=== PATIENT | female | born 1985 | race Caucasian/White ===

== ENCOUNTER 2021-03-01 07:51 | Emergency (ER) | payer OTHER ==
[~2021-03-01 07:51] MED LIST: ALL DAY ALLERGY10 M3 PO; ARAVA20 MG PO; FLEXERIL10 MG PO; HUMIRA20 MG/0.4 SC; KEFLEX250 MG PO; MEDROL 4MG DOSEP4 MG PO; NADOLOL20 MG PO; NORCO 5-325 TA1 EACH PO; PROMETHEGA12.5 MG/SU PR; PROZAC20 MG PO; ROBAXIN500 MG PO; TAPAZOLE5 MG PO; VOLTAREN **OUT50 MG PO
== END 2021-03-01 10:07 | disposition home or self-care (01) ==
LOC: FER 07:51
DX: O99.352 Diseases of the nervous system complicating pregnancy, second trimester (principal); G43.909 Migraine, unspecified, not intractable, without status migrainosus; O10.412 Pre-existing secondary hypertension complicating pregnancy, second trimester; Z3A.27 27 weeks gestation of pregnancy; Z88.1 Allergy status to other antibiotic agents; Z87.891 Personal history of nicotine dependence
CPT/HCPCS: J0780; J7120

== ENCOUNTER 2021-03-12 06:32 | Day surgery (SDCO) | payer OTHER ==
[2021-03-12 07:11] LABS: BILIRUBIN NEGATIVE (NEGATIVE); BLOOD NEGATIVE Ery/uL (NEGATIVE); CLARITY CLEAR (CLEAR); COLOR YELLOW (YELLOW); GLUCOSE (U) NORMAL (NORMAL); LEUKOCYTES NEGATIVE Leu/uL (NEGATIVE); NITRITE NEGATIVE (NEGATIVE); PROTEIN NEGATIVE (NEGATIVE); UROBILINOGEN 0.2 mg/dL (0.2-1.0)
[2021-03-12 07:17] LABS: AMPHETAMINES NEGATIVE (NEGATIVE); BARBITURATES NEGATIVE (NEGATIVE); ECSTASY (MDMA) POSITIVE (NEGATIVE); MARIJUANA (THC) NEGATIVE (NEGATIVE); METHADONE NEGATIVE (NEGATIVE); OPIATES NEGATIVE (NEGATIVE); OXYCODONE NEGATIVE (NEGATIVE)
== END 2021-03-12 08:20 | disposition home or self-care (01) ==
LOC: FOB 06:32
PROVIDERS: ADMIT Obstetrics & Gynecology
DX: O99.891 Other specified diseases and conditions complicating pregnancy (principal); M54.9 Dorsalgia, unspecified; M19.90 Unspecified osteoarthritis, unspecified site; O16.3 Unspecified maternal hypertension, third trimester; O99.283 Endocrine, nutritional and metabolic diseases complicating pregnancy, third trimester; E05.90 Thyrotoxicosis, unspecified without thyrotoxic crisis or storm; E55.9 Vitamin D deficiency, unspecified; Z87.891 Personal history of nicotine dependence; Z88.1 Allergy status to other antibiotic agents; Z91.040 Latex allergy status; Z88.8 Allergy status to other drugs, medicaments and biological substances; Z79.1 Long term (current) use of non-steroidal anti-inflammatories (NSAID); Z3A.28 28 weeks gestation of pregnancy
CPT/HCPCS: 80305; 81003; G0378

== ENCOUNTER 2021-06-03 17:29 | Emergency (ER) | payer OTHER ==
[2021-06-03 20:22] LABS: BASOPHIL 1.3 % (0-2); EOSINOPHIL 4.9 % (0-5); HCT 43.7 % (37.0-47.0); HGB 13.7 g/dl (12.5-16.0); LYMPHOCYTE 21.5 % (15-48); MCH 25.6 pg (25.0-31.0); MCHC 31.4 g/dL (32.0-36.0); MCV 81.5 fL (78.0-100.0); MONOCYTE 11.1 % (0-12); MPV 8.8 fL (6.0-9.5); NEUTROPHIL 60.7 % (41-80); NRBC 0; PLT 489 K/uL (150-400); RBC 5.36 M/uL (4.20-5.40); RDW 13.9 % (11.5-14.0); WBC 8.8 K/uL (4.0-10.5)
[2021-06-03 20:25] LABS: BILIRUBIN NEGATIVE (NEGATIVE); BLOOD NEGATIVE Ery/uL (NEGATIVE); CLARITY CLEAR (CLEAR); COLOR YELLOW (YELLOW); GLUCOSE (U) NORMAL (NORMAL); LEUKOCYTES TRACE Leu/uL (NEGATIVE); NITRITE NEGATIVE (NEGATIVE); PROTEIN NEGATIVE (NEGATIVE); SPECIFIC GRAVITY <=1.005 (1.001-1.030); UROBILINOGEN 0.2 mg/dL (0.2-1.0)
[2021-06-03 20:31] LABS: SQUAMOUS EPITHELIAL CELLS RARE
[2021-06-03 21:12] LABS: ALBUMIN 3.8 g/dL (3.4-5.0); BILIRUBIN - TOTAL 0.2 mg/dL (0.2-1.0); BUN/CREAT RATIO (CALC) 15.5 RATIO; CREATININE 0.58 mg/dL (0.51-0.95); GLOBULIN (CALCULATION) 4.4 g/dL; MAGNESIUM 2.3 mg/dL (1.8-2.4); POTASSIUM 3.8 mmol/L (3.5-5.1); TOTAL PROTEIN 8.2 g/dL (6.4-8.2)
[2021-06-03] MEDS ORDERED: BACTRIM DS TAB1 EACH PO (22:40)
== END 2021-06-03 23:30 | disposition home or self-care (01) ==
LOC: FER 17:29
PROVIDERS: Emergency Medicine
DX: O16.5 Unspecified maternal hypertension, complicating the puerperium (principal); O90.89 Other complications of the puerperium, not elsewhere classified; I45.10 Unspecified right bundle-branch block; Z98.890 Other specified postprocedural states; Z98.51 Tubal ligation status; Z88.1 Allergy status to other antibiotic agents; Z79.899 Other long term (current) drug therapy
CPT/HCPCS: 36415; 71045; 80053; 81001; 83615; 83735; 84484; 85025; 93005; J3490

== ENCOUNTER 2022-01-05 18:26 | Emergency (ER) | payer OTHER ==
[~2022-01-05 18:26] MED LIST changes: +BACTRIM DS TAB1 EACH PO
[2022-01-05] MEDS ORDERED: PERCOCET 5-3251 EACH PO (21:09)
[2022-01-05] MEDS ORDERED: NAPROXEN500 MG PO (21:09)
[2022-01-05] MEDS ORDERED: CYCLOBENZAPRINE10 MG PO (21:09)
== END 2022-01-05 21:26 | disposition home or self-care (01) ==
LOC: FER 18:26
DX: M54.2 Cervicalgia (principal); M25.512 Pain in left shoulder; R07.81 Pleurodynia; Z88.1 Allergy status to other antibiotic agents; V49.40XA Driver injured in collision with unspecified motor vehicles in traffic accident, initial encounter
CPT/HCPCS: 70450; 71250; 72125; 72128